=== PATIENT | male | born 1995 | race Caucasian/White ===

== ENCOUNTER 2021-02-08 09:00 | Outpatient (RCR) | payer OTHER, SELFPAY ==
--- NOTE | 2021-02-08 09:15 | BH.PSA ---
Source of Information - Presenting Problems/Circumstances Problems, Referral Source, Mental Status, Client: Referred by pt's material planner Elizabeth Marquez from [place] [id number] due to mental healh impacting functiong (not been attending work due to MH). Treatment resistant depression. Limited benefit from medication adjusts and counseling in traditional outpatient. Psychiatric Presentation - Psych Issues & Need for Admission Psychiatric Issues:: Depression, Past Psychiatric History - MH Treatment Hx First hospitalization:: n/a Most recent hospitalization:: n/a Medication Trials:: Yes ECT Therapy:: No Age of first mental health symptoms: Pt could not identify age when he first recognized MH symptoms however reports that he believes it was in his teenage years. Began medications for depression around the age of 16. Describe (age, circumstance, etc) any past hospitalizations: n/a Current providers for mental health treatment (counselor, psychiatrist, case picker, etc.): Elizabeth Goodman- certified retinal angiographer- [place] [id number]. Solo Myers- counselor- [place] [id number] Development & Family of Origin - Childhood Significant Childhood Events: No significant childhood events noted. - Family Who currently lives in your home?: [place] living with fiance of 4 years. Describe family composition:: Both parents are still together and live in [facility]. Pt has 1 brother who is 4 years younget than him. - Family History Family Hx of Psychiatric or AOD Problems: Mother and Father- both have depression. Ethnicity - Culture Do you identify yourself with any particular cultural, ethnic background, or community?: No - Sexuality Sexual Orientation: Heterosexual Spirituality - Mormonism Do you currently identify with any organized yarsani?: None - Beliefs Is there a particular form of support from this community you can use for your recovery?: No Mental Status - Memory Recent Memory: Fair Remote Memory: Fair - Concentration Concentration: Fair - Eye Contact Eye Contact: Fair - Speech Speech: Articulate - Thought Process Thought Process: Logical Insight: Fair Judgment: Fair Behavior: Anxious - Orientation Orientation: Time, Person, Place, Situation - Appearance Appearance: Disheveled - Mood Mood: Anxious, Depressed, Sad, Irritable - Affect Affect: Flattened Suicide Assessment - Suicidal Ideation Have you ever felt like hurting yourself?: Yes Please explain:: Pt reports long standing thoughts are passive thoughts or or desire to be . Sometimes he thinks about methods maybe I should jump off a bridge'' however no hx f attempts. Suicidal gesture 10 years ago when he held knife to his throat. Were you using ETOH/drugs at the time?: No Suicidal Intentional Rating Scale (SIRS): Suicidal thoughts (past) Physician Notification: If Active suicidal thoughts/Will not contract for safety is checked, contact physician and document in the Physician Notification section below. Violent Behavior/Abuse History - Homicidal Ideation Do you have any homicidal thoughts? If so, explain:: No Is there a known potential victim? If yes, who:: No - Abuse Have you ever been abused?: No Please explain:: n/a - Life Events Are there any other significant life events?: Financial loss - Pt reports that due to mental health he has been unable to maintain consistent work. - Safety Do you ever feel threatened in your home? If yes, describe:: No Adult Social History - Age 18 to Present Describe your current support system:: bio-family is supportive however they are not open about mental illness. Fiance is support Substance Use - Substance Substance Use Type: Alcohol - Specific Drugs What specific drugs have you used?: Alcohol- 1 drink per week. - Withdrawal History Comments:: No hx of withdrawls. 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 If yes, describe:: No - Court Orders Have you had any past court orders for psychiatric treatment?: No Do you have a present court order for psychiatric treatment?: No Problem Checklist - Current Problem Areas Problem List: Depressed mood/sad, Anxiety, Anger/aggression Discharge Planning Needs - Anticipated Follow-Up Private Therapist/Psychiatrist:: [phone]- Elizabeth Wurstle- certified retinal angiographer Other (to be determined): [facility]- Solo Manzano- counselor Family and Caregiver Contacts:: Dada harrison Release of Information Signed:: Yes Software Controls Engineer's Assessment - Client's Needs What are the client's feelings about the program?: Pt reports that he is open to to learning skills to help with negative thoughts and depression What are the client's goals?: I just want to be happier What are the client's strengths?: Open-minded, intelligent, Diagnoses - Diagnoses Diagnosis #1:: MDD, Recurrent, severe, w/o psychosis Diagnosis #2:: KHADIJAH Interpretive Summary - Interpretive Summary Interpretive Summary: Pt is a 26 year old male with hx of MDD and KHADIJAH. No previous psychiatric admissions. Referred to [facility] by his outpatient material planner due to mental health impacting functioning. Pt has been off work for several weeks due to mental health symptoms. Medication adjustments and traditional counseling have had limited benefit. Decompensation for 4 weeks with no specific trigger. Had panic attacks last time he attempted to work. Endores increased sleep, erratic appetitie, nop pleasure in activities, low energy, low motivation, anhedonia, crying spells, hopelessness, worthlessness, and isolative behaviors. Unable to focus or concentrate. Spends most of the day on the couch. Denies active SI, plan, or intent. Passive thoughts of with desire to be . Some thoughts of methods (jump off bridge). Suicidal gesture 10 years ago by placing knife to throat. Reports that he feels like a failure. Unable to maintain consistent employement due to MH symptoms. Ruminations. Negtive thoughts. Denies HI or psychosis. No hx of susbtance abuse. Family hx of depression. Currently living with christy. Treatment Plan Recommendations - Recommendations Guidelines: Special needs identified to be included in the development of an individualized treatment plan regarding past psychiatric history and treatment, developmental events, family relationships/events/culture, past and/or current educational, occupational, social, and residential experience, and legal status. Recommendations:: Due to limited support, limited benefit from traditional outpatient, and MH symptoms interfering with functioning recommended [facility] level of care.
--- NOTE | 2021-02-08 10:10 | BH.SGPN.GN ---
Behaviors/Verbalizations/Mental Status: []Alert and oriented. Eye contact is anxious. Motor activity is appropriate. Appearance is casual. Speech is Appropriate. Mood is depressed and anxious. Affect is constricted. Thoughts are linear and logical. No evidence of psychosis. Client Response/Progress/Benefit: []Pt was an active participant in group discussion and activity. Connected with quote.? Attentive during psychoeducation.? Pt worked with group to identify forces that can impact growth and overall mental health. Pt was doing a lot of nodding during the garden metaphor and how different forces work together to get growth. Pt nodded that it is hard for him to ask for help from his positive supports. Participated in the activity and took a leadership role.? Pt benefited from increased awareness of the impact positive and negative forces can have on mental health and personal growth. First day of IOP. Will continue IOP tx to prevent decompensation, learn healthy coping skills, and improve daily functioning. Narrative Note: []
--- NOTE | 2021-02-08 11:20 | BH.SGPN.GN ---
Behaviors/Verbalizations/Mental Status: []Client alert and oriented, casually dressed and groomed. Eye contact good. Motor activity appropriate. Speech WNL. Affect constricted, mood depressed. Thoughts linear, logical, no signs of hallucinations or delusions. Client Response/Progress/Benefit: []Pt engaged during session AEB pt providing input at times during session, completed worksheet and listened attentively to peers. Group processed the activity and identified positive and negative forces impacting ability to complete the challenge. Pt was attentive during psychoeducation and appeared to benefit from increased insight on the impact of negative and positive forces on mental wellness. Identified positive forces as: friends, family, communication, desire to get better, life goals, and therapy. Identified negative forces: friends/family, poor boundaries, what ifs, racing negative thoughts, lack of self-care, and hopelessness. Identified wanting to focus on being more honest about how he feels. Pt's first day in IOP. Recommended continued IOP tx to increase healthy coping skills, improve self-awareness, and prevent decompensation. Narrative Note: []
--- NOTE | 2021-02-09 08:17 | BH.MDN ---
Multi-Disciplinary Note - Note 30-min Individual Time Started:: 08:44 Date: 02/09/21 Purpose of session/treatment goals addressed:: The purpose of this session was to gather information on client's current stressors, symptoms, and treatment goals. Another goal was to build rapport and provide psychoeducation. Eye Contact:: Good Motor Activity:: Appropriate Appearance:: Casual Speech:: Appropriate Mood:: Dysthymic Affect:: Flat Thoughts:: Linear, Logical, No evidence of hallucinations/delusions noted Staff Interventions:: Therapist used active listening and open-ended questions to explore client's current stressors, symptoms, and treatment goals. Therapist used strengths perspective to build rapport and provide emotional support. Therapist provided psychoeducation on maintainance cycles. Client Response:: Client responded well to session, open to meeting with therapist. Client shared he is in IOP because his depression and anxiety have worsened over the past four weeks. Client reports his goals for IOP are to feel enjoyment and happiness again. Client shared he has not been able to enjoy any of his hobbies or interests and he would like to get back to golfing and fishing. Client reports even though his symptoms have recently increased, he feels like he has experienced anhedonia for the past 5 years. Client also would like to increase his focus and be more present. Client reports belief that he feels burnout in many areas of life, especially work. Client reports belief this might be because client has worked since age 14 and he has some resentment that he did not get a normal childhood. Client hopes that IOP tx will help client enjoy work or find a better career path. Receptive to psychoeducation and reports that talking about his stressors is helpful. Risks/Concerns:: Client endorses thoughts of wishing I could just escape but denies any passive thoughts of or suicidal ideations. Progress Toward Goals/Plan:: Client's first week of IOP tx appears nervous, but receptive to tx. Client endorses hopelessness, worthlessness, low motivation, anhedonia, increased sleep, low energy, fluctuating concentration, and guilt. Client?s biggest stressor is being inside my own head and he admits to feeling burnout. Client's symptoms have been impacting his ability to work and his relationships. Client will continue IOP tx to prevent decompensation, reduce intensity of symptoms, and improve daily functioning. Time Stopped:: 09:00
--- NOTE | 2021-02-09 08:17 | BH.MTP_ITS ---
[facility] Treatment Plan - Patient Information Program Physician:: Dr. Kelle Mendiola Primary Therapist:: Kathryn SALINAS - Psychiatric Diagnoses Psychiatric Diagnoses:: Major depressive disorder, recurrent, severe without psychosis F 33.2; dysthymia (F 34.1); generalized anxiety disorder Diagnosis Code(s):: F33.2 - Estimated LOS Estimated LOS (in weeks):: 6 Problem/Goal #1 - Problem/Goal #1 Stated Goal:: Client will reduce depressive symptoms, worthlessness, passive thoughts of , and negative thinking associated with major depressive disorder. Description of Barriers: Client reports feeling like a failure and appears to struggle with a lot of negative thinking. Client's partner is a support for him, but client also worries they rely too much on each other which harms their mental health. Client reports feeling burnout at work and often wants to just escape. Functional Impact: Client is a 25-year-old male with a history of MDD and KHADIJAH. Client has no previous hospitalizations and was referred to [facility] by his outpatient therapist at [place] [id number]. Client reports he has not been to work in two weeks due to significant anxiety and depression. Client reports decompensation of symptoms over the past four weeks with no specific trigger. Client shared he tried to login to work and had a panic attack. Client currently endorses a depressed mood, crying spells, lack of energy, lack of motivation, anhedonia, increased sleep, isolative behaviors, hopelessness, and worthlessness. Client is also unable to focus and he spends most of his days ?on the couch.? Client has history of suicidal ideations and reports a suicidal gesture 10 years ago. Client currently has passive thoughts of and occasionally will think ?I should jump off a bridge.? Client reports feeling like a failure and worries about maintaining consistent employment due to his mental health. Client?s symptoms are currently impacting his overall functioning. Goal Relevant Strengths/Supports: Client is established with outpatient services at [place] [address]. Client has supports and motivation to get better. - Objectives Objective #1 Stated Objective: Client will learn and utilize 2-3 healthy coping strategies to manage depressive symptoms as shown by reduced DSM-5 cross-cutting symptom measure score. Interventions: Through group and individual sessions, therapist will assist client in learning internal coping strategies to manage depressive symptoms, along with helping client identify triggers. Therapist will teach client about self-compassion, self-care, and how to break unhealthy maintenance cycles. Discharge Criteria: Client will have achieved this goal when his DSM-5 symptoms for depression have decreased and he can verbalize and has practiced at least 2 healthy coping strategies. Target Date: 03/22/21 Review Date: 03/08/21 Status: open Objective #2 Stated Objective: Client will identify and replace 2-3 negative thinking patterns that reinforce depressive symptoms and self-criticism. Interventions: Through groups and individual therapy, client will be provided with education on cognitive distortions, mistaken beliefs, and identifying and combating negative self-talk. Therapist will assist client in recognizing triggers for increased self-deprecating and depressive thought patterns. Therapist will help client explore connection between thoughts, feelings, and actions and help client reframe depressive thought patterns. Discharge Criteria: Client will have accomplished this goal when client can identify and replace at least 2 negative thinking patterns with more realistic, positive statements. Target Date: 03/22/21 Review Date: 03/08/21 Status: open Problem/Goal #2 - Problem/Goal #2 Stated Goal:: Client will reduce anxiety and ruminations while increasing ability to function on daily basis. Description of Barriers: Client reports feeling like a failure and appears to struggle with a lot of negative thinking. Client's partner is a support for him, but client also worries they rely too much on each other which harms their mental health. Client reports feeling burnout at work and often wants to just escape. Functional Impact: Client is a 25-year-old male with a history of MDD and KHADIJAH. Client has no previous hospitalizations and was referred to [facility] by his outpatient therapist at [place] [address]. Client reports he has not been to work in two weeks due to significant anxiety and depression. Client reports decompensation of symptoms over the past four weeks with no specific trigger. Client shared he tried to login to work and had a panic attack. Client currently endorses a de pressed mood, crying spells, lack of energy, lack of motivation, anhedonia, increased sleep, isolative behaviors, hopelessness, and worthlessness. Client is also unable to focus and he spends most of his days ?on the couch.? Client has history of suicidal ideations and reports a suicidal gesture 10 years ago. Client currently has passive thoughts of and occasionally will think ?I should jump off a bridge.? Client reports feeling like a failure and worries about maintaining consistent employment due to his mental health. Client?s symptoms are currently impacting his overall functioning. Goal Relevant Strengths/Supports: Client is established with outpatient services at [place] [address]. Client has supports and motivation to get better. - Objectives Objective #1 Stated Objective: Client will identify 2-3 cognitive distortions that lead to rumination and learn 2-3 ways to manage these thoughts to better manage anxiety Interventions: Therapist will provide education on the most common cognitive distortions and teach client the connection between thoughts, emotions, and feelings. Therapist will assist client in identifying, challenging, and replacing dysfunctional thoughts with positive, more realistic thoughts. Therapist will use CBT and DBT techniques to help client gain awareness of thinking errors and learn how to more effectively handle negative thoughts. Discharge Criteria: Client will have accomplished this goal when can identify at least 2 cognitive distortions and at least 2 coping skills to manage negative thoughts. Target Date: 03/22/21 Review Date: 03/08/21 Status: open Objective #2 Stated Objective: Client will identify 2-3 anxiety triggers and 2 calming coping skills to reduce anxiety as shown by decreased DSM-5 cross cutting symptom measure scores. Interventions: Therapist will help client increase awareness of anxiety triggers and educate client on the ways anxiety impacts overall health. Therapist will teach client various calming and mindfulness strategies to promote emotional regulation and reduction of anxiety. Therapist will teach client about maintenance cycles for anxiety and how to break unhealthy maintenance cycles. Therapist will encourage client to implement healthy coping skills on a regular basis. Discharge Criteria: Client will have accomplished this goal when can report at least 2 triggers for anxiety and 2 calming strategies to manage symptoms. Additionally, client will have accomplished this goal when she can report reduced DSM-5 cross cutting symptoms for anxiety. Target Date: 03/22/21 Review Date: 03/08/21 Status: open
--- NOTE | 2021-02-09 09:30 | BH.NA ---
Physical Data - Vital Signs Pulse Rate: 86 Blood Pressure: 141/99 - discussed that he should discuss BP with his PCP - Height/Weight Height: 1.8 m Weight:: 117.934 kg Weight in Pounds: 260.0 lbs Current Medication Compliance - Medication Compliance Do you take your medication as prescribed?: Yes Nutritional History - Appetite Nutritional Instructions:: If client shows signs of a swallowing problem, weight change of 10 pounds or more in the last month, or is on a diabetic diet, the physician will review and request a dietitian consult, as appropriate. All unintentional weight loss will be referred to the physician for decision on need for dietitian consult. Describe your appetite:: Fair Additional nutritional information:: Client states his appetite varies, stating either he is very hungry or not hungry at all. Functional Assessment - Sleep Pattern Describe any problems with sleeping: Client states he sleeps at least 8 hours per night, states sometimes he wakes up tired and will usually sleep more. - Activities Motor Activity:: Functional Sensory/Communication Assess - Communication Problems Do you have difficulty understanding what people are saying?: No Medical Problems/History - Pain Assessment Do you have acute or chronic pain?: No Surgical History - Surgical History Have you had any surgeries? If so, list type and date:: Yes - T&A, wisdom teeth Substance Abuse - Substance Abuse Please describe substance abuse in the last 30 days:: Client states he occasionally drinks alcohol socially. Client denies tobacco, substance or caffiene use. Mental Status Summary - Mental Status Significant Findings/Observations on Appearance and Mood:: Client is alert and oriented x4. Client is casually groomed. Client is wearing a mask due to pandemic. Client's voice has normal rate and volume. Client makes fair eye contact. Client appears somewhat anxious. Client makes logical associations. Client denies delusions/hallucinations. Client denies SI. Suicide Assessment - Suicidal Ideation Are you currently or have you been suicidal in the past?: Yes - client reports passive SI at times, denies today Suicidal Intentional Rating Scale (SIRS): Suicidal thoughts (past) Physician Notification: If Active suicidal thoughts/Will not contract for safety is checked, contact physician and document in the Physician Notification section below. Past Psychiatric History - MH Treatment Hx Past Psychiatric Medications:: Zoloft, Pristiq, Wellbutrin Age of first mental health symptoms: Client states he was diagnosed with anxiety/depression around age 17. Describe (age, circumstance, etc) any past hospitalizations: None. 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 Fall Risk Assessment - Age Age: Less than 60 - Mental Status Mental Status: Willing & able to ask for assistance when needed - Physical Status Physical Status: No problems - Impairments Impairments: None - Elimination Elimination: Continent AND independent - Gait or Balance Gait or Balance: Walks independently - Hx of Falls History of falls in the past 6 months: No known history - Medications/Substances Psychotropics:: Antidepressants, Mood stabilizers Medications/substances used within the past 24 hours or ordered to administer: 1-2 of the medications/substances listed above - Total Score Total Points:: 1 RN Summary of Impressions - Impressions Recommendations: Include psychiatric and medical issues, treatment planning recommendations, and discharge planning needs. Impressions: Psychiatric Issues: Major depressive disorder, recurrent, severe without psychosis; dysthymia, generalized anxiety disorder - Level of Care How do the client's current symptoms and functional deficits support need for this level of care?: Client was referred to IOP by psychiatric cns at [place] [id number] for mental health impacting client's ability to function. Client states about 3 weeks or so ago, he got very anxious about work, feeling shakey and having panic about going to work. Client states he missed a week of work, and then when it was time to go back to work, he had very high anxiety and couldn't go. Client has not been to work in weeks, and states his anxiety is still increased at times at home but has not had a panic feeling since he has not been at work. Client endorses anhedonia, decreased motivation, and decreased pleasure in activities. Client states he has passive SI at times, but mostly thinks about what if I just left the country? What if I just went to [place] and left my life here?. IOP will promote gains and prevent further decompensation while providing social support and skills training.
[2021-02-09 10:47] VITALS: BP 141/99; PULSE 86
--- NOTE | 2021-02-09 11:10 | BH.SGPN.GN ---
Behaviors/Verbalizations/Mental Status: []Client alert and oriented, casually dressed, hygiene appeared to be tended to. Eye contact good. Motor activity appropriate. Speech within normal limits. Affect constricted, mood dysthymic. Thoughts linear, logical, no signs of hallucinations or delusions. Client Response/Progress/Benefit: []Client engaged participant AEB client providing input during discussions and listened attentively to peers. Participated in group discussion on the various areas of self-care, benefits, and types of self-care activities for each area. Client completed worksheet in which client identified current self-care practices and what self-care activities client wants to start using. Client reported he will focus on improving physical and emotional self-care as client believes this will improve his mood and help client ?unplug.? Client stated he will do this by going for a walk today. Appeared to benefit from reflecting on the area of self-care client can improve and setting a small goal. First week of IOP tx. Will continue IOP tx to prevent decompensation, increase support, and improve daily functioning. Narrative Note: []
--- NOTE | 2021-02-09 12:52 | BH.PSY.EVA_ITS ---
Psychiatric Evaluation - Initial Evaluation Initial Evaluation: History of Present Illness: [] The patient is a 25-year-old engaged male who currently lives with his arjun who he has been with for 4 years. He calls her his . He has a history of depression and anxiety and was referred to the [facility] behavioral health IOP program by his child psychiatrist due to decreased functioning. He has not been to work in the past 2 weeks because he had a panic attack at work and has been unable to function well. He first noticed a worsening of his depression and anxiety about 4 weeks ago and he thinks this started with a argument he had with his . 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 Patient states that he has been unable to keep jobs secondary to his mental health symptoms. He feels like a failure. He has limited primary support. He tries to talk to his and 1 friend who lives in [place]. There are some issues in their marriage lately because his also is depressed and anxious and the patient feels that there rely too much on only each other for support. He denies any abuse in his marriage. His biggest stressor is being inside my own head. He denies any history of self-harm. He endorses feeling depressed and having crying spells. He endorses hopelessness, worthlessness, low motivation, anhedonia, increased sleep, low energy, fluctuating concentration and guilt. He does admit to having passive thoughts of and sometimes feels like maybe I should jump off a bridge but he states that he is not serious about this. He denies any plan for suicide. He denies any active suicidal or homicidal ideation. He denies hallucinations, delusions or symptoms of nayely ever. He uses minimal caffeine. He feels he has been depressed off and on for 8 years. He did he is a worrier by nature and had a panic attack at work 2 weeks ago but this was the first panic attack he has ever had. He denies history of self-harm, seizure or head trauma. He denies OCD, eating disorder, trauma or PTSD. Current Psychiatric Medications: [] Trental X 20 mg p.o. daily (on this for 1 year and dose increased 7 months ago); lithium carbonate 300 mg p.o. nightly (on this only 5 days now). Past Psychiatric History: [] He has no psychiatric admissions ever. He denies any suicide attempts ever. He has not done an IOP program before. He did have a gesture 10 years ago where he held a knife to his throat but he was talked out of it and was not taken to the ER or the psych hospital. He first had counseling at age 22 and it was somewhat helpful. He was first depressed at age 14 and he first took medication for depression at age 16. He has a new counselor but only saw him twice and is not sure how this will work out. His past medications include Wellbutrin which did not help, Pristiq and Zoloft which helped for a while. Substance Use History: [] He is a non-smoker and does not vape. No marijuana use. He uses about 1 alcoholic drink or less per week. No other drug use and no rehab ever. Allergies: [] No known allergies Medications: [] Prilosec, l-methylfolate, and psych meds as dictated above. Past Medical History: [] He has no medical illnesses. He had his tonsils and wisdom tooth surgery. He has had endoscopy for stomach pain recently which was negative. He has normal sexual function and identifies as heterosexual. Family Psychiatric History: [] His mother is 50 years old and father is 51 years old and they are relatively healthy. His parents both have depression and both takes Zoloft. No other psych issues in the family. No completed suicides in the family. No substance abuse issues in the family. Personal/Social History: [] He was born and raised in [facility] [place] [facility] and describes his childhood as fine. His parents were and are still ma rried. He has 1 brother 4 years younger than him and they are not real close. He denies any physical, verbal or sexual abuse. His parents were loving but they did not talk about emotions and would never apologize for anything. In school he had friends and did sports including golf and swimming. He graduated high school and had 2 or 3 years of college at an [employer], [employer] and [employer]. 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 The patient took FMLA at age 22 and started counseling to deal with his mental health issues at that time also. 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 He changes jobs because he does not like the job and also they sometimes force him out for reasons unknown to him. He currently lives with his arjun of 4 years. She is 23 years old and works as an office professional. She also has issues with low self-esteem and and depression. Legal History: [] No arrests. No detention. 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 No DUIs. Review of Systems: [] He has some stomach pain and other and nausea which is being worked up currently. Vital Signs: [] Reviewed in nurses notes. Mental Status Examination: [] Patient is a 25-year-old male who is seen wearing a mask due to the Covid pandemic. He has no psychomotor agitation or retardation. Eye contact is fair to good and speech is normal rate and rhythm and fluent with no pressure. Mood is depressed. Affect is constricted. Thought process is goal-directed and organized. Thought content: There is evidence of passive thoughts of . There is no evidence of suicidal or homicidal ideation. There is no evidence of hallucinations or delusions. Reality testing is intact. Intelligence is above average. Judgment is intact. Insight: Limited. Impulsivity: Moderate. Diagnoses: [] [place] I: [] Major depressive disorder, recurrent, severe without psychosis; dysthymia (F 34.1); generalized anxiety disorder [place] II: [] Deferred [place] III: [] Negative [place] IV: [] Primary support and work issues Plan: [] The patient will start the IOP program in behavioral health at [facility] as the structure, support, education, individual and group therapy will hopefully prevent worsening of the patient's symptoms which might require hospitalization. He felt safe during the interview and if it anytime he does not feel safe he will let us know or go to the emergency room. The risks, options, possible complications and side effects of his medications were discussed with the patient and he understands and accepts these. The patient will continue his current medications as the lithium carbonate was just started 5 days ago. He has an appointment to get more blood work done for his lithium and he is given a list's asking his doctor to add a vitamin D level and TSH level to the labs he obtained next weeks if they have not been checked recently. No medication changes were made. He will continue to follow-up with his outpatient psychiatric and medical providers.
--- NOTE | 2021-02-09 13:04 | BH.DR.ITP ---
Initial Treatment Plan - Patient Information Visit Information: ADMISSION DATE: EXPECTED LOS: 4-6 weeks - Problems/Symptoms Problem #1:: Depression Symptom:: Sadness, hopelessness, worthlessness, anhedonia, low energy, increased sleep, guilt, passive thoughts of , low motivation. Problem #2:: Anxiety Symptom:: Worry, rumination, panic attack
--- NOTE | 2021-02-16 09:02 | BH.SGPN.GN ---
Behaviors/Verbalizations/Mental Status: []Client alert and oriented, casually dressed and groomed. Eye contact good. Motor activity appropriate. Speech within normal limits. Affect flat, mood dysthymic. Thoughts linear, logical, no signs of hallucinations or delusions. Reviewed client?s symptom tracker, no risk for suicidal ideation, plan, or intent as of 02/16/21 Client Response/Progress/Benefit: []Client responded well to session, receptive to feedback. Client reports feeling better than yesterday but he still reports feeling depressed. Client shared I'm in a very weird headspace as client had an emotionally difficult weekend and start of the week. Client did not know what triggered his worsened mood and that his anxiety also increased. Client shared feeling anxious and negative about his career and future. Client receptive to feedback on challenging perspective and negative thoughts. Client's positives today were that he returned to IOP and he bought a journal. Client appeared to benefit from gaining support from saw feeder and peers. Progress limited due to client recently starting IOP. Will continue IOP tx to prevent decompensation, improve daily functioning, and reduce isolation. Narrative Note: []
--- NOTE | 2021-02-16 10:11 | BH.SGPN.GN ---
Behaviors/Verbalizations/Mental Status: [] Client alert and oriented, casually dressed and groomed. Eye contact fair to good. Motor activity appropriate. Speech within normal limits. Affect congruent, mood depressed. Thoughts linear, logical, no signs of hallucinations or delusions Client Response/Progress/Benefit: []Client engaged in session AEB client providing some input, taking notes, and listening attentively to peers. Client shared connecting with the importance of setting boundaries, noting that he has struggles to set boundaries with himself in the past. Provided an example of not setting personal spending limits with himself and struggling with impulse spending as a result. Client assisted group with identifying barriers to setting healthy boundaries. These included: fear of abandonment, unhealthy habits, difficulties setting boundaries with self, ?what if? thoughts, and not knowing how. Shared a personal barrier he has experienced in the past is not knowing how to or admitting the need for improved boundaries. Listened as participants provided examples and noted struggling with boundaries when it comes to spending as well as opening up more emotionally. Client seemed to benefit from increased awareness of how boundaries impact mental health. Will continue IOP tx to improve use of healthy coping, reduce mental health sx, and prevent decompensation. Narrative Note: []
--- NOTE | 2021-02-16 11:20 | BH.SGPN.GN ---
Behaviors/Verbalizations/Mental Status: []Client alert and oriented, casual dress, hygiene appropriate. Eye contact good. Motor activity appropriate. Speech within normal limits. Affect congruent, mood anxious. Thoughts linear, logical, no signs of hallucinations or delusions. Client Response/Progress/Benefit: []Client responded well to session, connecting with peers and receptive to supportive statements. Client engaged in the boundary self-assessment activity and attentive during psychoeducation on the different boundary styles. Client reported rigid when it comes to material and time boundaries. Stated he is porous with emotional and sexual boundaries. Client stated he recognizes his porous boundary style has resulted in him not being the best partner. Client participated in brainstorming strategies to improve boundary setting. Seemed to benefit from increased awareness of how current boundary style impacts mental health and learning different strategies to improve boundary style. Client to continue IOP tx to increase healthy coping, challenge distorted thoughts and prevent decompensation.
--- NOTE | 2021-02-16 14:52 | BH.MDN ---
Multi-Disciplinary Note - Note 30-min Individual Time Started:: 12:15 Date: 02/16/21 Purpose of session/treatment goals addressed:: The purpose of this session was to gather information on client's current stressors, symptoms, and barriers. Another goal was to provide psychoeducation and set homework. Eye Contact:: Good Motor Activity:: Appropriate Appearance:: Casual Speech:: Appropriate Mood:: Dysthymic Affect:: Constricted Thoughts:: Linear, Logical, No evidence of hallucinations/delusions noted Staff Interventions:: Therapist used active listening and open-ended questions to explore client's current stressors, symptoms, history, and barriers. Therapist used strengths perspective to build rapport. Therapist provided psychoeducation on maintenance cycles for depression and explored client's maintenance cycles. Taught client opposite action techniques to break maintenance cycles and set homework. Client Response:: Client responded well to session, open to meeting with therapist. Client reports this past weekend hit me really hard. Client shared he left IOP feeling better, but then crashed over the weekend and spiraled. Client admitted to using alcohol to cope on Sunday and he shared that he has been looking up different trips he can take or new jobs he can apply for. Client able to recognize that these are all avoidance strategies. Receptive to learning more about the depressive maintenance cycle. Client identified his maintenance cycle as well as sub-cycles of his maintenance cycle. This included negative thoughts, avoidance and isolation, and unhealthy coping skills. Client learned how to break unhealthy maintenance cycles by either thought challenging or opposite action. Discussed how changing behaviors can result in a more positive mood and less negative consequences. Client learned about DDD (delay, distract, decide) to help prevent the use of unhealthy coping skills. Client also set a goal to clean his car today to promote behavioral activation. Risks/Concerns:: Client denies any active suicidal ideation, plan, or intent as of 02/16/21. Future oriented. Progress Toward Goals/Plan:: Client's second week of IOP tx, so no significant changes noted. Client has been an active group member and his attendance has been consistent. Client endorses a depressed mood, isolative behaviors, anhedonia, lack of energy, low motivation, and guilt. Client also reports using unhealthy coping skills to manage his depressive symptoms. Client will continue IOP tx to prevent decompensation, improve mood stability, and reduce the use of healthy coping skills. Time Stopped:: 12:50
--- NOTE | 2021-02-17 09:04 | BH.SGPN.GN ---
Behaviors/Verbalizations/Mental Status: []Eye contact is fair, often looking down. Alert and oriented. Motor activity is appropriate. Appearance is casual. grooming is appropriate. Speech is Appropriate. Mood is anxious and depressed. Affect is constricted. Thoughts are linear and logical. No evidence of psychosis or hallucinations. SI reported as a 1/5 which is consistent to baseline, denies plan, or intent as of this date. Client Response/Progress/Benefit: []Pt engaged in session AEB listening to others and willingness to share thoughts and feelings with group. Pt noted feeling ?disappointed but relieved? on this date. Shared disappointment as she wanted to be further in progress by now. Receptive of challenging these thoughts and practicing more self-compassionate statements. Pt did well to identify current wins which included: accomplishing small goal of cleaning his car and mowing. Additional win included stepping out of his comfort zone and communicating with his spouse about more honestly. Noted this had been a positive experience. Identified healthy skills used as: setting small goals, positive self-talk, and reaching out to supports. Recommended ongoing IOP tx to improve coping skills and communication, and prevent decompensation. Narrative Note: []
--- NOTE | 2021-02-17 10:15 | BH.SGPN.GN ---
Behaviors/Verbalizations/Mental Status: []Client alert and oriented, causally dressed and groomed. Eye contact good. Motor activity appropriate. Speech within normal limits. Affect constricted, mood dysthymic. Thoughts linear, logical, no signs of hallucinations or delusions. Client Response/Progress/Benefit: []Client passive participant AEB client not providing input, however did appear to listen attentively to others. Group gave examples of unhealthy coping skills. Listened as group identified the following as reasons unhealthy skills are used: instant gratification, easy, escape reality, survival, feels good, learned behavior and habitual. Client participated in the group activity and connected that a healthy foundation of coping skills is composed of healthy internal and external coping skills. Client seemed to benefit from increased awareness of the importance of increasing healthy coping skills and consequences of utilizing unhealthy coping skills. Progress noted with pt using healthy skills outside treatment environment. Will continue IOP tx to prevent decompensation, continue use of healthy coping, and challenge distorted thoughts. Narrative Note: []
--- NOTE | 2021-02-17 11:15 | BH.SGPN.GN ---
Behaviors/Verbalizations/Mental Status: []Client alert and oriented, casually dressed and groomed. Eye contact good. Motor activity appropriate. Speech within normal limits, quiet. Affect constricted, mood depressed. Thoughts linear, logical, no signs of hallucinations or delusions Client Response/Progress/Benefit: []Client responded well to session, taking notes and contributing. Group discussed the different categories of coping skills which included distraction, emotional release, grounding, self-love, and thought challenging. Client participated in creating a coping skills ?menu? from the five categories of coping skills. Client's coping skill menu included: cleaning, writing down emotions, earthing, thinking in the alexis, and telling self ?today was not a bad day, it had bad moments.? Client reported he wants to work on reducing his all or nothing thoughts. Appeared to benefit from increasing repertoire of healthy coping skills. Will continue tx to prevent decompensation, reduce the use of unhealthy coping skills, and combat distortions. Narrative Note: []
--- NOTE | 2021-02-18 09:05 | BH.SGPN.GN ---
Behaviors/Verbalizations/Mental Status: [] Eye contact is good. Motor activity is appropriate. Appearance is disheveled. Speech is Appropriate. Mood is anxious. Affect is congruent. Thoughts are linear and logical. No evidence of psychosis. Reviewed daily check in sheet and no reports of suicidal ideations or intent. Client Response/Progress/Benefit: [] Pt participated when prompted. Attentive. Mental health win was stopping a panic attack. Shared that his thought process has improved and his feels more confident in his ability to manage his negative thoughts and emotions. States my bad moments are not as bad. Reframing thoughts. Shared that he is seeing negative as bad moments and not bad days. Improved prospective on things. Progress noted per pt report. Benefited from group support, encouragement, and feedback. Will continue in IOP to improve functioning, increase healthy coping skills, and prevent decompensation. Narrative Note: [] This psychotherapy group was provided via telehealth using two-way, real-time interactive telecommunication technology between the patients and the provider.?The interactive telecommunication technology included audio and video.? ?The patient was offered telemedicine as an option for care delivery during the COVID-19 pandemic and consented to this option. ?Patient location: [place] ?Provider located at [facility]
--- NOTE | 2021-02-18 10:05 | BH.SGPN.GN ---
This psychotherapy group was provided via telehealth using two-way, real-time interactive telecommunication technology between the patients and the provider.?The interactive telecommunication technology included audio and video.? ?The patient was offered telemedicine as an option for care delivery during the COVID-19 pandemic and consented to this option. ?Patient location: [place] ?Provider located at [facility] Behaviors/Verbalizations/Mental Status: []Client alert and oriented, neatly dressed and groomed. Eye contact fair. Motor activity appropriate. Speech within normal limits. Affect constricted, mood dysthymic. Thoughts linear, logical, no signs of hallucinations or delusions. Client Response/Progress/Benefit: []Pt was an active participant in group discussion and completed group worksheet. Attentive. Provided appropriate feedback. Group worked together to define anger and discussed the ways anger can impact one internally and externally. Pt stated anger is ?hard for me because I don?t really get angry.? However, pt gained insight that his anger is internalized rather than projected on others. Pt identified feeling disappointed in self and comparing himself to others as being internal events or feelings that can lead to anger. Pt also identified external ways that pt commonly expresses anger which included: sarcasm, negative self-talk, and isolating. Benefited from group by increasing understanding of the impact of anger on mental health. Will continue in IOP to prevent decompensation, reduce the use of unhealthy coping skills, and improve daily functioning. Narrative Note: []
--- NOTE | 2021-02-18 10:10 | BH.SGPN.GN ---
This psychotherapy group was provided via telehealth using two-way, real-time interactive telecommunication technology between the patients and the provider.?The interactive telecommunication technology included audio and video.? ?The patient was offered telemedicine as an option for care delivery during the COVID-19 pandemic and consented to this option. ?Patient location: [place] ?Provider located at [facility] Behaviors/Verbalizations/Mental Status: []Client alert and oriented, casually dressed and groomed. Eye contact fair. Motor activity appropriate. Speech within normal limits, limited input provided. Affect constricted, mood depressed. Thoughts linear, logical, no signs of hallucinations or delusions. Client Response/Progress/Benefit: []Pt was engaged throughout AEB contributing to group discussion and self-reflection. Pt contributed as group brainstormed healthy coping skills for better managing anger which included: music, walking/exercise, changing the environment, communicating with supports, and journaling. Pt appeared to benefit from identifying different techniques to manage anger as well as gaining awareness of potential consequences of unmanaged anger. Pt selected changing environment as the coping skill pt would like to try to regulate anger. Progress limited as new to IOP tx, though reports increased communication with supports in past week. Will continue IOP tx to promote the use of healthy coping skills and further improve emotion regulation skills. Narrative Note: []
--- NOTE | 2021-02-23 09:00 | BH.SGPN.GN ---
Behaviors/Verbalizations/Mental Status: []Eye contact is good. Alert and oriented. Motor activity is appropriate. Appearance is casual. grooming is appropriate. Speech is Appropriate. Mood is anxious and euthymic. Affect is congruent. Thoughts are linear and logical. No evidence of psychosis or hallucinations. Denies any SI, plan, or intent as of this date. Client Response/Progress/Benefit: []Pt engaged in session AEB listening to others and willingness to share thoughts and feelings with group. Pt noted feeling ?aggressive? on this date and described this as a motivating and driven type of aggression. Expressed this is due to several recent positives including securing a new job which he discussed is a positive step forward for him. Identified an additional positive as making time to practice self-care via drawing. Shared this has been an emotional release for him. Shared current stressor as finding a way to maintain healthy emotional balance without escalating to manic state. Did well to identify coping skills he can use. Appeared to benefit from supportive group environment. Recommended ongoing IOP tx to improve coping skills and mood management, and prevent decompensation. Narrative Note: []
--- NOTE | 2021-02-23 10:08 | BH.SGPN.GN ---
Behaviors/Verbalizations/Mental Status: []Client alert and oriented, neatly dressed and groomed. Eye contact good. Motor activity appropriate. Speech within normal limits. Affect constricted, mood euthymic. Thoughts linear, logical, no signs of hallucinations or delusions. Client Response/Progress/Benefit: []Client engaged throughout session AEB providing input when prompted. Appeared to connect with discussion on crisis and how unhealthy coping could result in a personal crisis. Group reflected on the importance of having awareness of personal warning signs in order to prevent reaching crisis point. Group identified potential warning signs for crisis and client completed the personal warning signs worksheet. Client identified personal crisis warning signs to include: increased risk taking, increased impulsivity, feeling disconnected from reality, drop in functioning, and negative thinking. Client reports that having a plan in place to cope with warning signs will prevent decompensation. Client benefited from increasing awareness of what leads to crisis and personal warning signs. Client will continue IOP tx to reinforce healthy coping skills, improve daily functioning, and further reduce depression. Narrative Note: []
--- NOTE | 2021-02-23 11:08 | BH.SGPN.GN ---
Behaviors/Verbalizations/Mental Status: []Client alert and oriented, neatly dressed and groomed. Eye contact good. Motor activity appropriate. Speech within normal limits. Affect congruent, mood euthymic. Thoughts linear, logical, no signs of hallucinations or delusions Client Response/Progress/Benefit: []Client responded well to session as evidenced by client listening attentively to others and providing ideas for coping skills throughout session. Client identified warning signs for crisis and gained further awareness of earliest warning signs. Client used the warning signs: increased risk-taking and impulsiveness, negative thinking, and loss of interest/functioning to create personal crisis plan. Client?s action plan included: opposite action, DDD, grounding, reaching out to support, keeping track of wins, deep breathing, and accomplishing little tasks. Client plans to put crisis plan in his IOP binder for now and to share it with his and one other support. Client appeared to benefit from creating a crisis action plan and increasing self-awareness. Client will continue IOP tx to promote mood stability, further increase ability to challenge distortions, and improve positive self-talk. Narrative Note: []
--- NOTE | 2021-02-24 09:00 | BH.SGPN.GN ---
Behaviors/Verbalizations/Mental Status: [] Eye contact is good. Motor activity is appropriate. Appearance is casual. Speech is Appropriate. Mood is anxious. Affect is congruent. Thoughts are linear and logical. No evidence of psychosis. Reviewed daily check in sheet and no reports of suicidal ideations or intent. Client Response/Progress/Benefit: [] Pt participated in group discussion. Attentive. Provided appropriate feedback. Attentive during video short on empathy vs sympathy and shared his thoughts on the video. Mental health wins include utilizing thoughts reframing and challenging skills. Was able to release anger this week in a healthy way. Emotion for today is gritty which he states is positive. Reports overeating at times to help with emotions however insight of this. Progress noted. Believes that he is making significant progress managing his emotions and is learning a great deal in IOP. Will continue in IOP to maintain gains, improve functioning to return to work, and increase healthy coping skills. Narrative Note: []
--- NOTE | 2021-02-24 10:10 | BH.SGPN.GN ---
Behaviors/Verbalizations/Mental Status: []Eye contact is good. Alert and oriented. Motor activity is appropriate. Appearance is casual. grooming is appropriate. Speech is Appropriate. Mood is euthymic. Affect is congruent. Thoughts are linear and logical. No evidence of psychosis or hallucinations. Client Response/Progress/Benefit: []Client responded well to session, engaged and actively took notes. Client contributed to discussion by showing non-verbal body language in group as examples of excitement, disinterest, and boredom. The group identified barriers to managing emotions such as unable to identify the emotion, negative self-talk, catastrophizing, jumping to conclusions, personalizing, and reading other?s body language. During group activity, client played the role of a ?bumper? to communicate with peers to meet their goal. Appeared to benefit from group as client understood the importance of managing emotions. Will continue IOP to promote the use of healthy coping skills, challenge negative thoughts, and improve daily functioning. Narrative Note: []
--- NOTE | 2021-02-24 11:10 | BH.SGPN.GN ---
Behaviors/Verbalizations/Mental Status: []Client alert and oriented, neatly dressed and groomed. Eye contact good. Motor activity appropriate. Speech within normal limits. Affect constricted, mood euthymic. Thoughts linear, logical, no signs of hallucinations or delusions. Client Response/Progress/Benefit: []Client engaged in session AEB client providing limited input during discussion and completed worksheet. Attentively listening during psychoeducation on 4 zones of regulation and able to identify feelings and behaviors for each zone. Worked with group to identify coping skills one can use to support self in each zone. Client reported belief client is in the green/yellow zones today as client feels ?energized and charged.? Client reported he was more in the blue zone this morning, but he used opposite action. Client plans to identify what support looks like for him today as a way to maintain his mood. Benefited from increased education on zones of regulation or stages of alertness for emotions and healthy coping skills to use for each zone. Will continue IOP tx to promote mood stability, reduce negative self-talk, and increase the use of healthy coping skills. Narrative Note: []
--- NOTE | 2021-02-25 10:05 | BH.SGPN.GN ---
Behaviors/Verbalizations/Mental Status: [] Client alert and oriented, casually dressed and appropriately groomed. Eye contact good. Motor activity appropriate. Speech within normal limits. Affect constricted, mood euthymic and anxious, Thoughts linear, logical, no signs of hallucinations or delusions. Client Response/Progress/Benefit: []Client receptive of session, mostly passive though did well with providing input when prompted and taking notes throughout. Client agreed with the quote and shared how communicating can be an illusion when we assume others know why we are shutting down. Group identified potential barriers to healthy communication as: anxiety, fear of other?s reactions, making assumptions, shutting down, and fear of being vulnerable. Noted a personal communication barrier as anxiety and ?stuffing? his emotions. Expressed that ?stuffing is great until it?s really not? indicating jumping from being shut down to lashing out at times. Client remained attentive and contributed during psychoeducation on the four communication styles, providing input and examples throughout. Benefited from increased insight regarding own communication style and impacts this has on overall mental health. Client will continue IOP to promote the use of healthy coping skills, improve anxiety and mood management, and prevent decompensation. Narrative Note: []
--- NOTE | 2021-02-25 11:10 | BH.SGPN.GN ---
Behaviors/Verbalizations/Mental Status: []Client alert and oriented, casually dressed and groomed. Eye contact fair. Motor activity appropriate. Speech within normal limits. Affect constricted, mood anxious. Thoughts linear, logical, no signs of hallucinations or delusions. Client Response/Progress/Benefit: []Client engaged participant AEB her attentiveness during discussion and listened to peers. Client reported he uses all of the communication styles, identifying passive-aggressive and aggressive to the styles that cause the most issues for him. Client recognizes the outcome is negative when he is passive-aggressive or aggressive. Attentive during psychoeducation about DEAR [employer] (Describe, Express, Assert, Reinforce, Mindfulness, Appear confident, Negotiate) interpersonal communication skill. Client identified his communication goal is to focus on the skill of describe by making sure both his and self are on the same page when having a discussion. Client seemed to benefit from increased insight into how her communication style impacts her mental health and relationships. Client progressing as shown by client reporting increased insight into how his behavior and choices impact mental health and relationships. Will continue IOP tx to increase use of healthy coping, challenge distorted thoughts and prevent decompensation.
--- NOTE | 2021-02-25 12:23 | BH.MDN ---
Multi-Disciplinary Note - Note 45-min Individual Time Started:: 09:08 Date: 02/25/21 Purpose of session/treatment goals addressed:: To address current stressors and distorted thoughts. Another goal was to discuss client's support needs and address social anxiety. Eye Contact:: Good Motor Activity:: Appropriate Appearance:: Neat Speech:: Appropriate Mood:: Euthymic Affect:: Congruent Thoughts:: Linear, Logical, No evidence of hallucinations/delusions noted Staff Interventions:: Therapist explored client's current stressors, symptoms, and application of coping skills. Gave client praise and encouragement on progress. Therapist helped client combat distortions reinforcing fear of failure and anxiety. Therapist helped client explore his support needs and problem-solve strategies to translate it into his daily life. Therapist provided psychoeducation social anxiety and discussed ways client can start to combat this. Client Response:: Client responded well to session, open to meeting with therapist. Client stated he feels much better since admission to [facility] and he contributes this to utilizing his coping skills and finding a new job. Client has worries that his mood is just a placebo but he recognizes that this his negative thinking and he was able to combat this. Client shared he has been fishing, using self-reflection, and practicing DDD. Client will be starting a new job soon and he feels like this will help his mental health in the long run. Client asked to focus the session more on how to verbalize his needs with support and identify the support he wants. Client able to conclude that he needs accountability, open communication with his partner, and someone to check-in on him to make sure he is avoiding the use of unhealthy coping skills. Client stated now that he is feeling better he wants to make connections with people, but his social anxiety is high. Discussed where this stems from and explored ways to overcome social anxiety. Client connected with the discussion on vulnerability and how this can help form connections. Risks/Concerns:: Client denies any suicidal ideations, plan, or intent as of 02/25/21. Future oriented and positive. Progress Toward Goals/Plan:: Client is responding well to IOP tx and has been making significant progress. Client self-reports increased motivation, reduced depressive symptoms, and a more positive mindset. Client has accepted a new job and he has been engaging in hobbies he used to enjoy. Client reports his biggest stressor right now is staying well and reducing social anxiety. Client will continue IOP tx to promote gains and reduce social anxiety that hinders client's functioning. Time Stopped:: 09:50
--- NOTE | 2021-03-02 10:00 | BH.SGPN.GN ---
Behaviors/Verbalizations/Mental Status: [] Eye contact is good. Motor activity is appropriate. Appearance is casual. Speech is Appropriate. Mood is depressed. Affect is flat. Thoughts are linear and logical. No evidence of psychosis Client Response/Progress/Benefit: [] Pt was an active participant in group discussion and activity. Attentive during psychoeducation. Along with peers was able to identify barriers to taking action on his mental health which included; fear of failure, the unknown, change, one's environment, past negative experiences, being passive, and fear of vulnerability. Identified several symptoms and stressors he feels are holding him back from progress such as anxiety, fear of failure, toxic people, and unhealthy coping. Benefited from increased self-awareness of obstacles. Will continue in IOP to improve functioning and maintain gains. Narrative Note: []
--- NOTE | 2021-03-02 11:07 | BH.SGPN.GN ---
This psychotherapy group was provided via telehealth using two-way, real-time interactive telecommunication technology between the patients and the provider. The interactive telecommunication technology included audio and video. The patient was offered telemedicine as an option for care delivery during the COVID-19 pandemic and consented to this option. Patient location: [place] Provider located at [facility] Behaviors/Verbalizations/Mental Status: []Client alert and oriented, neatly dressed and groomed. Eye contact good. Motor activity appropriate. Speech within normal limits. Affect constricted, mood euthymic. Thoughts linear, logical, no signs of hallucinations or delusions. Client Response/Progress/Benefit: []Client responded well to session, taking notes and participating in worksheet discussion. Client connected with the zones of action/change and reported that making sustainable change comes from stepping out of one?s comfort zone and into the learning zone. However, group discussed how even the learning zone can have cons such as short-term increased anxiety. Client set a goal to gain control over his use of excuses which prevent client from change. Client wants to be able to work on this by creating a smaller to-do list every day and sharing his daily to-dos with a support. Client believes she will need support from his friends and partner to accomplish this goal. Appeared to benefit from identifying a small goal to benefit mental health. Will continue IOP tx to promote gains, further improve daily functioning, and reduce negative thinking. Narrative Note: []
--- NOTE | 2021-03-03 09:01 | BH.SGPN.GN ---
Addendum entered and electronically signed by Ce De Leon LSW 03/06/21 10:57: Client responded well to session, engaged throughout and participated in group discussion. Client reported feeling ?glad? this morning as he is continuing to make progress in managing his mental health sx and is proud of the amount of progress he has achieved. Discussed that he is discharging from [facility] tx tomorrow and reflected on areas in which he has seen significant improvement. Noted increased communication with supports, improved use of healthy coping mechanisms, and emotion regulation skills. Expressed plans to continue therapy on an individual outpatient level. Noted current stress as beginning a new job Sunday, however identified this as a eustressor. Benefited from identifying healthy coping skills he has used throughout tx that can continue to maintain gains, as well as support provided by group members. Client discharging tomorrow and will continue with individual outpatient tx to continue to promote healthy change behaviors and prevent decompensation. Original Note: Behaviors/Verbalizations/Mental Status: []Client alert and oriented, casually dressed. Eye contact fair to good. Motor activity appropriate. Speech within normal limits. Affect congruent, mood euthymic. Thoughts linear, logical, no signs of hallucinations or delusions. Reviewed client?s symptom tracker, no risk or thoughts of suicide ideation, plan, or intent as of 03/03/21. Client Response/Progress/Benefit: [] Narrative Note: []
--- NOTE | 2021-03-03 10:05 | BH.SGPN.GN ---
Behaviors/Verbalizations/Mental Status: []Client alert and oriented, neatly dressed and groomed. Eye contact good. Motor activity appropriate. Speech within normal limits. Affect constricted, mood euthymic. Thoughts linear, logical, no signs of hallucinations or delusions. Client Response/Progress/Benefit: []Pt was an active participant in group discussion and was attentive during psychoeducation. Provided input on the quote of the day and shared how learning how to change his thinking resulted in significant progress. Group was primarily educational and introduced and gave examples of the 10 cognitive distortions. Pt provided some examples of personal experiences for certain cognitive distortions. Pt connected with jumping to conclusions and overgeneralizing thoughts. Benefited from education and increased awareness of cognitive distortions and role that they play in negative thoughts and emotions. Pt reports he has done much better to catch and combat his negative thoughts. Will continue IOP tx for one more day and discharge tomorrow. Can benefit from one more day of tx to promote mood stability and reinforce healthy coping skills. Narrative Note: []
--- NOTE | 2021-03-03 11:05 | BH.SGPN.GN ---
Behaviors/Verbalizations/Mental Status: []Client alert and oriented, neatly dressed and groomed. Eye contact good. Motor activity appropriate. Speech within normal limits. Affect constricted, mood euthymic. Thoughts linear, logical, no signs of hallucinations or delusions. Client Response/Progress/Benefit: []Client was an active participant AEB client providing input throughout session and completing worksheet. Client attentive during psychoeducation and additional discussion on cognitive distortions. Client engaged while group practiced reframing example thoughts on the board. Client then worked to identify, label, and reframe a distorted thought of their own. Client used the thought ?people are laughing at me in the background.? Client labeled this as the personalizing and jumping to conclusions distortions and stated it makes client feel vulnerable, anxious, and scared. Client reframed this thought to ?I am assuming and do not know them.? Client seemed to benefit from practicing identifying and reframing distorted thoughts. Client shared how challenging distorted thoughts has significantly helped his progress. Will discharge from [facility] tx tomorrow. Narrative Note: []
--- NOTE | 2021-03-03 15:15 | BH.MDN_ITS ---
Multi-Disciplinary Note - Note 30-min Individual Time Started:: 12:05 Date: 03/03/21 Purpose of session/treatment goals addressed:: The purpose of this session was to review client's progress and review strategies that will promote mood stability and gains made in IOP. Another goal was to discuss discharge recommendations and process any current stressors. Eye Contact:: Good Motor Activity:: Appropriate Appearance:: Neat Speech:: Appropriate, Tangential Affect:: Full Thoughts:: Linear, Logical, No evidence of hallucinations/delusions noted Staff Interventions:: Therapist used open-ended questions to explore client's thoughts on personal progress. Therapist also provided emotional support and helped client problem-solve current stressors. Therapist reviewed supports and coping skills with client to promote gains and prevent setbacks. Therapist discussed aftercare plan with client and used strengths-perspective to empower client on the goals client has accomplished. Therapist discussed the benefits of ongoing maintenance and use of daily coping skills. Therapist gave client a quote collage for closure. Client Response:: Client responded well to session, open to meeting with therapist. Client shared I'm having a hard time thinking about things to talk about as client states he is feeling much better. Client starts a new job on Sunday and he is excited for this. Discussed the importance of maintaining self- care and healthy work-life balance to promote gains. Client will discharge tomorrow as client has made significant progress since admission. Client feels some anxiety about leaving [facility] and starting a new job, but he feels able to handle this anxiety. Client identified progress as being more vulnerable, less isolation, increased awareness, increased ability to challenge thoughts, and better communication and understanding with his partner. Client shared several coping skills and quotes from IOP that helped client make progress. Client's coping skills included: thought challenging, DDD, self-care, verbalizing emotions, reaching out to supports, and stepping out of his comfort zone. Client and therapist discussed aftercare and strategies to promote mood stability. Client will continue seeing his outpatient [facility] [facility] [employer] and counselor. Client will also start IOP aftercare next week. Risks/Concerns:: Client denies any suicidal ideations or thoughts of as of 03/03/21. Progress Toward Goals/Plan:: Client has made significant progress since starting IOP tx AEB reduced DSM-5 scores and self-report of overall improve mood and functioning. Client will discharge from IOP tx tomorrow, but can benefit for one more day of tx to reinforce healthy coping skills and review aftercare plan. Client can continue to benefit from outpatient therapy to strengthen coping skill and further combat negative thoughts. Time Stopped:: 12:40
--- NOTE | 2021-03-04 08:36 | BH.AFTERPLAN ---
Aftercare Plan - Demographics Treatment End Date:: 03/04/21 Psychiatrist:: Kelle Mendiola Psychiatrist Office #:: [phone] [facility] Therapist:: Kathryn Manriquez Therapist Phone #:: [phone] - Plan Details Progress/Aftercare Plan Details:: Tahir has made significant strides since starting IOP as shown by his improved mood and functioning, ability to challenge distortions, and overall more positive outlook. When Tahir started IOP, he was severely depressed, isolating, and not enjoying many things in life. Tahir felt overwhelmed and negative about his future. Now, Tahir reports feeling positive more days than not and he is consistently able to challenge his perspective. Tahir found a new job that will be a better fit for him and allow Tahir to make a difference. Tahir does not isolate and he has been doing things he used to enjoy such as fishing. Tahir self-reports progress in the following areas: better insight, reducing impulsive or unhealthy behaviors, increased ability to challenge negative thinking, better communication, more optimism, and more control over his emotions. Tahir was active in both group and individual therapy sessions. Tahir contributed to group discussions, offered emotional support to peers, and consistently followed through with his goals. In individual sessions, Tahir was receptive to feedback, consistent with homework, and willing to push himself. Tahir?s DSM-5 scores decreased overall by 67%, depression decreased by 71%, SI decreased by 100%, anxiety decreased by 55%, and not knowing what who he is or what he wants in life decreased by 67%. Tahir will follow up with [place] [id number] for medication management and counseling. Tahir plans to start IOP aftercare next week. Strategies for Success:: 1. Challenge those negative thoughts! Reminders: this is a bad moment not a bad day, emotions and thoughts are not facts, then is not now, you have control over your response to stressors. 2. Self-care...big or small, it is all important. Continue to make that a priority. 3. Verbalize your emotions, don't suppress them. You have been doing great with this, but keep it up. 4. Communicate with support and verbalize your needs. Don't assume others know or that you know others' perspective, ask. 5. Step out of your comfort zone... Remember that we cannot selectively numb emotions. To feel prema is to be vulnerable and to be vulnerable is strength. 6. Continue to journal and practice self-reflection. 7. Maintenance! Keep up with what has worked. - Appointments Appointments/Referrals to Other Services:: 1. Follow up with Elizabeth Goodman in March. 2. Follow up with [facility] aftercare starting March 10 at 2:00pm. 3. Schedule an appointment within the next two weeks with [facility]. - Medications Home Medications: Home Medications l-Methylfolate DAILY 02/09/21 lithium carbonate 300 mg PO QHS 02/09/21 omeprazole 20 mg PO DAILY 02/09/21 vortioxetine 20 mg PO DAILY 02/09/21
--- NOTE | 2021-03-04 08:36 | BH.DS_ITS ---
Discharge Summary - Demographics Date of Admission:: 02/08/21 Discharge Date: 03/04/21 Presenting Problems at Admission:: Client is a 25-year-old male with a history of MDD and KHADIJAH. Client has no previous hospitalizations and was referred to [facility] by his outpatient therapist at [place] [address]. Prior to IOP admission, client reported he had not been to work in two weeks due to significant anxiety and depression. Client reported decompensation of symptoms over the past four weeks with no specific trigger. Client shared he tried to login to work and had a panic attack. At admission, client endorsed a depressed mood, crying spells, lack of energy, lack of motivation, anhedonia, increased sleep, isolative behaviors, hopelessness, and worthlessness. Client was also unable to focus and he spent most of his days ?on the couch.? Client had passive thoughts of and occas ionally thought ?I should jump off a bridge.? Client reported feeling like a failure and worried about maintaining consistent employment due to his mental health. Client?s symptoms were impacting his overall functioning. Discharge Diagnoses:: Major depressive disorder, recurrent, severe without psychosis F 33.2; dysthymia (F 34.1); generalized anxiety disorder Reason for Discharge:: Client has demonstrated significant progress AEB a 67% overall decrease in symptoms as well as a significant improvement in functioning. Client no longer meets criteria for [facility] level of care and will transition to outpatient counseling and [facility] aftercare. - Treatment Progress During Treatment & Response: Client responded well to treatment and demonstrated significant progress AEB reduction in DSM-5 scores and high engagement in group and individual sessions. Client?s depression decreased by 71%, anxiety decreased by 55%, and his overall symptoms decreased by 67%. Client reported consistently using healthy coping skills including self-care, DDD, thought challenging, communicating emotions, and opposite action. Client was an active group member who gave insight to discussion, feedback to peers, and connected the topics to his daily life. Client was highly engaged in individual sessions and was consistent with homework and skill utilization outside of group. At discharge, client was getting ready to start a new job, completing projects at home, and using positive self-talk on a daily basis. Client's consistent application of skills was likely the reason for reduction in symptoms and ability to maintain progress. Client will follow up with outpatient providers and [facility] aftercare group. Issues Still to be Addressed:: Client can continue to benefit from outpatient therapy to promote gains, further improve mood and functioning, and combat cognitive distortions. Client would also like to improve his communication skills and work on improving his relationship further with his partner. Client also can benefit from continuing to reduce the use of unhealthy coping skills. Discharge Recommendations/Instructions:: Client is recommended to follow up with his outpatient providers at [place] [address]. Client sees Elizabeth Goodman for medication management in March. Client has no medication concerns at this time. Client will also follow up with [facility] at [place] [address] for individual counseling and was encouraged to make an appointment within the next two weeks. Lastly, client will begin IOP aftercare on March 10. Discharge Handout: Complete Discharge Handout with client on aftercare options and continuity of care.
--- NOTE | 2021-03-04 09:02 | BH.SGPN.GN ---
Behaviors/Verbalizations/Mental Status: []Client alert and oriented, neatly dressed and groomed. Eye contact good. Motor activity appropriate. Speech within normal limits. Affect constricted, mood euthymic. Thoughts linear, logical, no signs of hallucinations or delusions. Reviewed client?s symptom tracker, no risk for suicidal ideation, plan, or intent as of 03/04/21 Client Response/Progress/Benefit: C[] Client responded well to session, attentive and engaged. Client reports feeling happy this morning as client has been able to maintain progress while in IOP and will discharge today. Client shared his mood has been much more positive an client contributes this to using thought challenging, opposite action, and identifying wins on a more consistent basis. Client also shared he has been avoiding unhealthy coping skills which has made a significant difference. Client reports he is somewhat stressed about what to expect following IOP as well as about some home projects, but client recognizes he has control over these stressors. Progress noted in client's improved mood and functioning. Will discharge from IOP today as he no longer meets criteria for IOP level of care. Narrative Note: []
--- NOTE | 2021-03-04 10:00 | BH.SGPN.GN ---
Behaviors/Verbalizations/Mental Status: [] Eye contact is good. Motor activity is appropriate. Appearance is casual. Speech is Appropriate. Mood is euthymic. Affect is full. Thoughts are linear and logical. No evidence of psychosis Client Response/Progress/Benefit: [] Pt participated at times during group discussion. Active during group activity. Attentive during psychoeducation on fear and the impact that fear of failure can have. Pt and peers provided insight on thoughts that contribute to fear of failure such as; I'm not good enough, I won't succeed, I know I can't/couldn't do it, Why try ... I will fail, and I could have done that better. Pt and peers were able to identify the benefits to failure in an attempt to reframe. Group identified that failure can be a way to; learn what to do differently, increase resiliency, increase self-compassion, and problem-solve. Pt benefited from psychoeducation on the impact of fear of failure and changing perspective on how to view setbacks. Pt will continue in IOP to maintain gains and prevent decompensation. Narrative Note: []
--- NOTE | 2021-03-04 11:08 | BH.SGPN.GN ---
Behaviors/Verbalizations/Mental Status: []Client alert and oriented, casually dressed and groomed. Eye contact good. Motor activity WNL. Speech within normal limits. Affect congruent, mood anxious and euthymic. Thoughts linear, logical, no signs of hallucinations or delusions. Client Response/Progress/Benefit: []Client responded well to session, engaged and actively participating throughout. Client completed the fear of failure worksheet and reported that fear of failure has kept client from getting help mental health and achieving personal goals in the past. Client able to identify barriers that reinforce personal fear of failure which included: toxic environment, distorted thoughts, negative self-talk, and focusing on past failures. Client attentive during discussion of the different strategies to help overcome fear of failure. Identified personal strategies to include: thought challenging, asking for help, creating a plan, and keeping track of personal wins. Client appeared to benefit from learning ways to overcome fear of failure. Will continue IOP tx to continue to promote application of healthy coping skills, continue to improve self-talk, improve healthy boundary setting, and maintain stability. Narrative Note: []
== END 2021-03-04 02:00 | disposition home or self-care (01) ==
LOC: BHIOP 09:00
PROVIDERS: Referring Provider Psychiatry & Neurology Psychiatry; Visit Provider Psychiatry & Neurology Psychiatry
DX: F33.2 Major depressive disorder, recurrent severe without psychotic features (principal); F34.1 Dysthymic disorder; F41.1 Generalized anxiety disorder; Z79.899 Other long term (current) drug therapy
CPT/HCPCS: H0035; 90832; 90834; 90853

== ENCOUNTER 2021-03-10 14:00 | Outpatient (RCR) | payer OTHER, SELFPAY ==
--- NOTE | 2021-03-10 14:00 | BH.SGPN.GN ---
Behaviors/Verbalizations/Mental Status: []Client alert and oriented, casually dressed and groomed. Eye contact fair. Motor activity appropriate. Speech within normal limits. Affect congruent. Mood euthymic. Thoughts linear, logical, no signs of hallucinations or delusions. Client Response/Progress/Benefit: []Client responded well to session AEB client sharing thoughts and feelings and listening attentively to peers. Client reported he started his new job this week and loves it. Client stated the new job is exactly what he needed. Client reported the management are very supportive of him taking care of his mental health. Client stated over the weekend he took time to write down all his accomplishments because he tends to minimize and recognzied he completed a lot in just two days. Identified feeling excited. Client contributed to the discussion on gratitude and its benefits. Client attentive during discussion of internal vs. external gratitude. Client created weekly plan on what she will identify for gratitude over the next 7 days. Appeared to benefit from connecting with peers and creating plan to identify gratitude. Will continue IOP aftercare to continue use of healthy coping skills, challenge distorted thoughts and prevent decompensation.
--- NOTE | 2021-03-10 15:05 | BH.MTP ---
Master Treatment Plan - Patient Information Program Physician:: Dr. Kelle Mendiola Primary Therapist:: Kathryn SALINAS - Psychiatric Diagnoses Psychiatric Diagnoses:: Major depressive disorder, recurrent, severe without psychosis F 33.2; dysthymia (F 34.1); generalized anxiety disorder Diagnosis Code(s):: F 33.2 - Estimated LOS Estimated LOS (in weeks):: 10 Problem/Goal #1 - Problem/Goal #1 Stated Goal:: client will maintain or see a reduction in symptoms AEB client score on the DSM 5 cross-cutting measure and improve client's daily functioning. - Objectives Objective #1 Stated Objective: Client will continue to consistently apply healthy coping skills to maintain progress made in IOP tx. Interventions: Through group therapy, client will review warning signs and triggers as well as healthy coping skills learned in IOP tx to successfully maintain gains while transitioning into outpatient therapy Discharge Criteria: Client will have accomplished this goal when client's score on the DSM-5 cross-cutting measure has either maintained or reduced over a 10 week period. Target Date: 05/19/21 Review Date: 04/07/21 Status: open Objective #2 Stated Objective: Client will learn and utilize 2-3 maintenance strategies to prevent decompensation. Interventions: Through group therapy, client will be provided with education on healthy maintenance behaviors, relapse prevention techniques, and healthy coping strategies. Discharge Criteria: Client will have accomplished this goal when can report using at least 2 maintenance skills to prevent decompensation. Target Date: 05/19/21 Review Date: 04/07/21 Status: open
--- NOTE | 2021-03-17 14:00 | BH.SGPN.GN ---
This psychotherapy group was provided via telehealth using two-way, real-time interactive telecommunication technology between the patients and the provider. The interactive telecommunication technology included audio and video. The patient was offered telemedicine as an option for care delivery during the COVID-19 pandemic and consented to this option. Patient location: [place] Provider located at [facility] Behaviors/Verbalizations/Mental Status: []Client alert and oriented, casually dressed and groomed. Eye contact fair. Motor activity appropriate. Speech within normal limits. Affect congruent, mood slightly dysthymic. Thoughts linear and logical. No signs of hallucinations or delusions. Client Response/Progress/Benefit: []Client responded well to session, checked reporting feeling ?happy? today as client is looking forward to this weekend. Client shared he felt ?very negative? on Sunday, but he used thought challenging and self-compassion which helped client ?get out of it quicker.? Identified healthy coping skills she has been using such as thought challenging, self-care, and self-awareness. Client engaged well during discussion of social support and noted benefits of different types of social support. Client appeared to benefit from psychoeducation on the four types of social support. Client was engaged as client contributed to how one may build social support. Identified a goal for the week which was to increase social support by reaching out to his friends on a more consistent basis. Will continue aftercare IOP to promote gains and continue the use of healthy coping skills. Narrative Note: []
--- NOTE | 2021-03-31 14:00 | BH.SGPN.GN ---
This psychotherapy group was provided via telehealth using two-way, real-time interactive telecommunication technology between the patients and the provider. The interactive telecommunication technology included audio and video. The patient was offered telemedicine as an option for care delivery during the COVID-19 pandemic and consented to this option. Patient location: [place] Provider located at [facility] Behaviors/Verbalizations/Mental Status: []Client alert and oriented, neatly dressed and groomed. Eye contact good. Motor activity appropriate. Speech within normal limits. Affect congruent, mood euthymic. Thoughts linear, logical, no signs of hallucinations or delusions. Client Response/Progress/Benefit: []Pt receptive of session, engaged throughout. Pt noted he was feeling happy this afternoon and attributes this to taking steps towards improving his finances and has also been focusing on the positives more. 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 Discussed feeling more confident and that he has been challenging himself to journal and Identify small ?wins? even on the bad days. Receptive of discussion on personal accountability and its importance in maintaining mental health stability. Pt worked cooperatively with group to identify benefits of maintaining personal accountability. Engaged in discussion on different accountability styles and brainstorming strategies for improving ability to hold themselves accountable. Pt identified that for homework he will practice using visual and data driven accountability resources via keeping a daily mood tracker to recognize when starting to struggle. Pt seemed to benefit from support from peers and increasing understanding of personal accountability benefits and strategies. Progress noted in client?s report of continued mood stability and use of healthy emotion regulation skills. Will continue IOP aftercare group. Narrative Note: []
== END 2021-04-04 23:59 ==
LOC: BHOG 14:00
PROVIDERS: Referring Provider Psychiatry & Neurology Psychiatry; Visit Provider Psychiatry & Neurology Psychiatry
DX: F33.2 Major depressive disorder, recurrent severe without psychotic features (principal); F34.1 Dysthymic disorder
CPT/HCPCS: 90853

== ENCOUNTER 2021-04-07 14:00 | Outpatient (RCR) | payer OTHER, SELFPAY ==
--- NOTE | 2021-04-07 14:00 | BH.SGPN.GN ---
This psychotherapy group was provided via telehealth using two-way, real-time interactive telecommunication technology between the patients and the provider. The interactive telecommunication technology included audio and video. The patient was offered telemedicine as an option for care delivery during the COVID-19 pandemic and consented to this option. Patient location: [place] Provider located at [facility] Behaviors/Verbalizations/Mental Status: []Client alert and oriented, neat and casually dressed, hygiene tended to. Eye contact good. Motor activity appropriate. Speech within normal limits. Affect congruent, mood euthymic. Thoughts linear, logical, no signs of hallucinations or delusions. Client Response/Progress/Benefit: [] Client responded well to session, attentive and mostly engaged throughout, though at times appearing distracted by home environment. Reported feeling ?sleepy? today but overall positive. Reflected on areas in which he continues to make gains which includes coping with stress both at home and in the workplace as well as trying to focus on the positives when noticing negative thoughts. Client attentive throughout discussion on healthy decision making. Connected as group identified personal barriers and strategies to improve healthy decisions, giving input when prompted. Client reported he would like to work on improving his ability to make consistent progress by providing incentive through finding ways to reward his use of healthy decisions. Appeared to benefit from reflecting on application of coping skills, identifying barriers, and creating a game plan to improve healthy decision-making skills. Will continue IOP aftercare to continue the use of healthy coping skills and maintain stability. Narrative Note: []
--- NOTE | 2021-04-07 14:48 | BH.DS_ITS ---
Discharge Summary - Demographics Date of Admission:: 03/10/21 Discharge Date: 04/07/21 Presenting Problems at Admission:: Client discharged from [facility] tx and transitioned to IOP aftercare to maintain gains client made in IOP, further improve mood stability, and to reinforce healthy coping skills to manage depression and social anxiety. At admission to IOP aftercare, client reported an overall improved mood and functioning. However, did have the stressor of starting a new job and was continuing to work on challenging negative self-talk. Client was also working on maintaining progress with not using unhealthy coping skills and communicating with supports. Discharge Diagnoses:: Major depressive disorder, recurrent, severe without psychosis F 33.2; dysthymia (F 34.1); generalized anxiety disorder Reason for Discharge:: Client voluntarily discharged from IOP aftercare as client felt he received the full benefit of aftercare. Client will transition to traditional outpatient counseling. - Treatment Progress During Treatment & Response: Client demonstrated progress in IOP aftercare as client often reported setting healthy boundaries at work, practicing self-care on a weekly basis, and challenging distortions. Client also returned to being more physically active and getting back into his old hobbies. Client reported work has been going well for him and he feels his current work environment is good for his mental health. Client did not complete the DSM-5 due to early discharge. Client was attentive during IOP aftercare and was receptive to feedback and support from peers. Will discharge and continue with traditional outpatient counseling. Issues Still to be Addressed:: Client can continue to benefit from outpatient therapy to promote gains, further improve mood and functioning, and combat cognitive distortions. Client would also like to continuing working on communicating his needs and using positive self-talk. Client also can benefit from continuing to reduce the use of unhealthy coping skills. Discharge Recommendations/Instructions:: Client is encouraged to follow up with [facility] for medication management and outpatient counseling. Discharge Handout: Complete Discharge Handout with client on aftercare options and continuity of care.
== END 2021-04-27 14:11 | disposition home or self-care (01) ==
LOC: BHOG 14:00
PROVIDERS: Referring Provider Psychiatry & Neurology Psychiatry; Visit Provider Psychiatry & Neurology Psychiatry
DX: F33.2 Major depressive disorder, recurrent severe without psychotic features (principal); F34.1 Dysthymic disorder; F41.1 Generalized anxiety disorder
CPT/HCPCS: 90853